=== PATIENT | female | born 1990 ===

== ENCOUNTER → 2021-12-01 | Outpatient (CLI) | payer OTHER ==
[~2021-12-01] MED LIST: IBUP800 PO; Verotin-Gr Cap1 EACH PO
== END | disposition home or self-care (01) ==
LOC: LAB SHORT 09:39 → LAB 09:39
DX: N39.0 Urinary tract infection, site not specified (principal)
CPT/HCPCS: 87086

== ENCOUNTER → 2024-04-07 | Outpatient (CLI) | payer OTHER ==
[2024-04-07 19:21] LABS: BASOPHILS ABSOLUTE AUTO 0.03 K/mm3 (0.00-0.23); BASOPHILS PERCENT AUTO 0 % (0-2); EOSINOPHILS ABSOLUTE AUTO 0.08 K/mm3 (0.00-0.68); EOSINOPHILS PERCENT AUTO 1 % (0-6); Hematocrit 31.8 % (33.0-51.0); Hemoglobin 11.2 g/dL (11.5-16.0); IMMATURE GRAN ABSOLUTE AUTO 0.02 K/mm3 (0.00-0.10); IMMATURE GRAN PERCENT AUTO 0 % (0-1); LYMPHOCYTES ABSOLUTE AUTO 2.76 K/mm3 (0.84-5.20); LYMPHOCYTES PERCENT AUTO 31 % (21-46); MONOCYTES PERCENT AUTO 8 % (4-13); Mean Corpuscular HGB 31.7 pg (26.0-34.0); Mean Corpuscular HGB Conc 35.2 g/dL (31.5-36.5); Mean Corpuscular Volume 90 fL (80-100); Mean Platelet Volume 9.2 fL (9.1-12.4); NEUTROPHILS ABSOLUTE AUTO 5.44 K/mm3 (1.96-9.15); NEUTROPHILS PERCENT AUTO 60 % (41-73); Platelet Count 210 K/mm3 (150-400); RDW Standard Deviation 42.5 fL (35.1-46.3); Red Blood Cell Count 3.53 M/mm3 (3.80-5.20); White Blood Cell Count 9.03 K/mm3 (4.00-11.30)
== END ==
LOC: LAB SHORT 18:31 → LAB 18:31
PROVIDERS: Advanced Practice Midwife
DX: Z34.93 Encounter for supervision of normal pregnancy, unspecified, third trimester (principal)
CPT/HCPCS: 82950; 85025

== ENCOUNTER 2024-06-13 23:26 | Inpatient (IN) | payer OTHER ==
[~2024-06-13] VITALS: Ht 162.6 cm; Wt 71.3 kg
[2024-06-13 23:42] VITALS: BP 115/87
[2024-06-14] VITALS (23 sets, daily range): BP systolic 101–154; BP diastolic 63–86
[2024-06-14] MEDS ORDERED: Misoprostol 200 MCG Tab BC PRN (00:10)
[2024-06-14] MEDS ORDERED: Methylergonovine Maleate 0.2MG / ML 1ML Amp IM PRN ×2 (00:10→03:20)
[2024-06-14] MEDS ORDERED: Acetaminophen 500 MG Tab PO PRN (00:10)
[2024-06-14] MEDS ORDERED: Penicillin G Potassium 5,000,000 UNITS in NS 250 ML IV ONE (00:10)
[2024-06-14] MEDS ORDERED: Ondansetron HCl 2 MG / ML 2ML Vial IV PRN (00:10)
[2024-06-14] MEDS ORDERED: Lactated Ringer's 1,000 ML IV PRN (00:10)
[2024-06-14] MEDS ORDERED: Misoprostol 200 MCG Tab PR PRN (00:10)
[2024-06-14] MEDS ORDERED: Carboprost Tromethamine 250 MCG/ML 1ML Amp IM PRN (00:10)
[2024-06-14] MEDS ORDERED: OXYTOCIN/RINGER'S LACTATE 500 ML IV PRN (00:10)
[2024-06-14] MEDS ORDERED: Calcium Carbonate 500 MG Tab Chew PO PRN (00:10)
[2024-06-14] MEDS ORDERED: Oxytocin 10 Unit / ML Vial IM PRN (00:10)
[2024-06-14] MEDS ORDERED: Tranexamic Acid 1,000 MG in NS 100 ML IV SCH (00:10)
[2024-06-14] MEDS ORDERED: Lactated Ringer's 1,000 ML IV ONE (00:21)
[2024-06-14 00:27] LABS: BASOPHILS ABSOLUTE AUTO 0.04 K/mm3 (0.00-0.23); BASOPHILS PERCENT AUTO 0 % (0-2); EOSINOPHILS ABSOLUTE AUTO 0.06 K/mm3 (0.00-0.68); EOSINOPHILS PERCENT AUTO 1 % (0-6); Hematocrit 38.4 % (33.0-51.0); Hemoglobin 13.6 g/dL (11.5-16.0); IMMATURE GRAN ABSOLUTE AUTO 0.04 K/mm3 (0.00-0.10); IMMATURE GRAN PERCENT AUTO 0 % (0-1); LYMPHOCYTES PERCENT AUTO 33 % (21-46); MONOCYTES ABSOLUTE AUTO 0.82 K/mm3 (0.16-1.47); MONOCYTES PERCENT AUTO 8 % (4-13); Mean Corpuscular HGB 31.1 pg (26.0-34.0); Mean Corpuscular HGB Conc 35.4 g/dL (31.5-36.5); Mean Corpuscular Volume 88 fL (80-100); Mean Platelet Volume 9.3 fL (9.1-12.4); NEUTROPHILS ABSOLUTE AUTO 6.13 K/mm3 (1.96-9.15); NEUTROPHILS PERCENT AUTO 58 % (41-73); Platelet Count 210 K/mm3 (150-400); RDW Coefficient Variation 12.6 % (11.7-14.2); RDW Standard Deviation 40.4 fL (35.1-46.3); Red Blood Cell Count 4.37 M/mm3 (3.80-5.20); White Blood Cell Count 10.59 K/mm3 (4.00-11.30)
[2024-06-14] MEDS ORDERED: Lactated Ringer's 1,000 ML IV SCH ×3 (00:45→03:25)
[2024-06-14] MEDS ORDERED: ePHEDrine Sulfate 50 MG/ML 1ML Injection XX PRN (00:45)
[2024-06-14] MEDS ORDERED: FentaNYL 2mcg/ml-Bup 0.1% Epd 250 ML EPI PRN (00:45)
[2024-06-14] MEDS ORDERED: FentaNYL Citrate 50 MCG/ML 2 ML Injection ONE (01:02)
[2024-06-14] MEDS ORDERED: Witch Hazel/Glycerin PADS TOP PRN (03:20)
[2024-06-14] MEDS ORDERED: Misoprostol 100 MCG Tab PO PRN (03:20)
[2024-06-14] MEDS ORDERED: Benzocaine Topical Anesthetic Spray 60GM TOP PRN (03:25)
[2024-06-14] MEDS ORDERED: Ibuprofen 400 MG Tab PO PRN (03:25)
[2024-06-14] MEDS ORDERED: Ketorolac Tromethamine 30mg Vial IV PRN (03:25)
[2024-06-14] MEDS ORDERED: Acetaminophen 325 MG TABLET PO PRN (03:25)
[2024-06-14] MEDS ORDERED: Lanolin Cream TOP PRN (03:25)
[2024-06-14] MEDS ORDERED: Docusate Sodium 100 MG Cap PO PRN (03:25)
[2024-06-14] MEDS ORDERED: OxyCODONE 5 mg/Acetamin 325 mg TABLET PO PRN (03:25)
[2024-06-14] MEDS ORDERED: OXYTOCIN/RINGER'S LACTATE 500 ML IV SCH (03:30)
[2024-06-14] MEDS ORDERED: Penicillin G Potassium 2,500,000 UNITS in Dextrose 5% 100 ML IV SCH (04:30)
[2024-06-14] MEDS ORDERED: Prenatal Vit/FE Fumarate/FA 1 Tab PO SCH (09:00)
[2024-06-14 16:31] LABS: Hemoglobin 11.8 g/dL (11.5-16.0); Mean Corpuscular HGB Conc 35.8 g/dL (31.5-36.5); Mean Corpuscular Volume 89 fL (80-100); Mean Platelet Volume 9.1 fL (9.1-12.4); Platelet Count 181 K/mm3 (150-400); RDW Coefficient Variation 12.7 % (11.7-14.2); RDW Standard Deviation 40.9 fL (35.1-46.3); Red Blood Cell Count 3.69 M/mm3 (3.80-5.20); White Blood Cell Count 12.45 K/mm3 (4.00-11.30)
--- NOTE | 2024-06-14 22:28 | NUR ---
PT IS GOING TO BE DISCHARGED TO [facility] STATUS. PT DISCHARGE EDUCATION WAS PROVIDED AND SHE IS AWARE OF WHEN TO FOLLOW UP WITH PHYSICIAN. PAPER PRESCRIPTION WAS PROVIDED TO PT.
[2024-06-15 17:28] LABS: HEPATITIS C AB CIA INTERP Negative (Negative); HEPATITIS C ANTIBODY CIA INDEX 0.05 IV
== END 2024-06-14 20:43 | disposition home or self-care (01) | DRG 807 ==
LOC: OBS 23:26 → BC 23:34 → OBS 06-14 00:12 → BC 06-14 00:15
PROVIDERS: ADMIT Advanced Practice Midwife
PROC: 10E0XZZ Delivery of Products of Conception, External Approach (ICD-10-PCS; principal; 2024-06-14)
DX: O42.02 Full-term premature rupture of membranes, onset of labor within 24 hours of rupture (principal); Z37.0 Single live birth; Z3A.38 38 weeks gestation of pregnancy; O99.824 Streptococcus B carrier state complicating childbirth; Z88.2 Allergy status to sulfonamides; Z79.899 Other long term (current) drug therapy; O69.81X0 Labor and delivery complicated by cord around neck, without compression, not applicable or unspecified
CPT/HCPCS: 36415; 85025; 85027; 86803; 86850; 86900; 86901; 87210; 99214; A9270; J2540; J7050; J7120

== ENCOUNTER → 2024-06-19 | Outpatient (CLI) | payer OTHER | LOC: LAB SHORT 11:52 → LAB 11:52 | DX: N61.0 Mastitis without abscess (principal) | CPT/HCPCS: 87086; 87147 ==